=== PATIENT | male | born 1940 | race Caucasian/White ===

== ENCOUNTER 2016-08-23 19:40 | Emergency (ER) | payer OTHER ==
--- NOTE | 2016-08-23 21:08 | DIAGNOSTIC IMAGING REPORT ---
PROCEDURE: CT ABD/PELVIS WITH CONTRAST CLINICAL INDICATION: Mid abdominal pain x 3 days TECHNIQUE: 140 ml of Isovue 300 were injected intravenously and axial images were obtained of the entire abdomen and pelvis with sagittal and coronal reformations. COMPARISON: CT abdomen/pelvis 05/18/2013 FINDINGS: ABDOMEN: Mild left basilar scarring. Heart size is normal. Liver, gallbladder, pancreas, spleen, adrenal glands and kidneys are normal. Mild atherosclerosis of the aorta. Mild descending colon diverticulosis. PELVIS: Normal appendix. Midsigmoid anastomosis. Mildly enlarged prostate. Small bladder diverticula posteriorly and laterally are unchanged. No free fluid or inflammatory changes. Moderately severe degenerative changes of the spine. IMPRESSION: 1. Mild descending colon diverticulosis without inflammatory changes 2. Sigmoid surgical changes 3. Mildly enlarged prostate 4. Stable bladder diverticula 5. Results discussed with Dr. Santo All CT scans at this facility use dose modulation, iterative reconstruction, and/or weight-based dosing when appropriate to reduce radiation dose to as low as reasonably achievable.
--- NOTE | 2016-08-23 23:13 | ED CLINICAL REPORT ---
Clinical Report - Physicians/Mid Levels [facility] [address] [place] [address] 08/23/2016 19:41 Patient: BUCK MERRILL [place] Llct#: [id number] Time Seen: 19:58 Aug 23 2016. Arrived- By private vehicle. Historian- patient. HISTORY OF PRESENT ILLNESS Chief Complaint: ABDOMINAL PAIN. It is described as located in the lower abdomen. This started today and is still present. It was abrupt in onset and has been constant and waxing/waning. At its maximum, severity described as severe. When seen in the E.D., severity described as mild. The patient has had nausea. No vomiting. Similar symptoms previously: Many times. Diagnosis: (unclear). REVIEW OF SYSTEMS No chills, fever, sweats, calf pain or chest pain. No cough, difficulty breathing, pedal edema, palpitations or black stools. No bloody stools, constipation, diarrhea or urinary problems. n his report that he's had injury to both of his great toes. Apparently he was chopping wood in his stocking feet and a piece of wood struck them several days ago. Now he is having increased redness warmth and swelling oversight's that were abraded. All systems otherwise negative, except as recorded above. SOCIAL HISTORY Never smoker. No alcohol use or drug use. FAMILY HISTORY Denies family medical history. ADDITIONAL NOTES The nursing notes have been reviewed. PHYSICAL EXAM Vital Signs: 08/23/2016 19:48 BP: 154/73. HR: 100. RR: 16. O2 saturation: 96%. Temp: 97.6 F. Boyd-Hrat pain scale: 6/10. Have been reviewed. Appearance: Alert. Eyes: Pupils equal, round and reactive to light. ENT: Pharynx normal. Neck: Normal inspection. Neck supple. CVS: Normal heart rate and rhythm. Heart sounds normal. Respiratory: No respiratory distress. Breath sounds normal. Abdomen: Soft and nontender. Bowel sounds normal. No organomegaly. No mass. Back: Normal inspection. No CVA tenderness. Skin: Skin warm and dry. Normal skin color. Normal skin turgor. Extremities: Extremities exhibit normal ROM. No calf tenderness. Right foot: moderate erythema, mild tenderness and swelling and small and deep abrasion located in the first toe(s). Left foot: moderate erythema, mild tenderness and swelling and deep abrasion of the first toe. No lower extremity edema. Neuro: No motor deficit. No sensory deficit. LABS, X-RAYS, AND EKG Abdominal CT: Descending diverticula, no inflammatory findings. Laboratory Tests: UA-Culture if indicated: (COURT: 08/23/2016 20:05) ( [facility] [place] 08/23/[place] 20:23) Final results Test Result Flag Units (Reference) URINE COLOR YELLOW URINE APPEARANCE CLEAR URINE GLUCOSE NEGATIVE (NEGATIVE) URINE BILIRUBIN NEGATIVE (NEGATIVE) URINE KETONE NEGATIVE (NEGATIVE) URINE SPECIFIC GRAVITY 1.015 (1.010-1.030) URINE PH 7.0 (5.0-8.0) URINE PROTEIN TRACE (NEGATIVE) URINE UROBILINOGEN 0.2 EU/dL (0.2-1.0) URINE NITRITE NEGATIVE (NEGATIVE) URINE BLOOD 1+ (NEGATIVE) URINE LEUK ESTERASE NEGATIVE (NEGATIVE) URINE RBC 1-3 rbc/hpf (0-1) URINE WBC 0-1 wbc/hpf (0-1) URINE EPITHELIAL CELLS RARE EPI/hpf (0-5) URINE BACTERIA NONE SEEN (NONE SEEN) URINE COMMENT CULT NOT INDICATED 1+ MUCUSURINE CULTURES ARE SET-UP BASED ON THE FOLLOWING CRITERIA:POSITIVE NITRITEPOSITIVE LEUKOCYTE ESTERASEGREATER THAN 10 WHITE BLOOD CELLSMODERATE (2+) OR GREATER BACTERIA CBC w Diff: (COURT: 08/23/2016 20:00) ( [facility] [place] 20:16) Final results Test Result Flag Units (Reference) WHITE BLOOD COUNT 11.4 K/uL (4.5-11.5) RED BLOOD COUNT 5.14 M/uL (4.50-5.90) HEMOGLOBIN 15.9 gm/dL (13.5-17.5) HEMATOCRIT 48.7 % (41.0-53.0) MEAN CELL VOLUME 95 fL (80-100) MEAN CORPUSCULAR HGB 31 pg (26-34) MEAN CORPUSCULAR HGB CONC 33 g/dL (31-37) RED CELL DISTRIBUTION WIDTH 15.1 H % (11.6-14.8) PLATELET COUNT 266 K/uL (150-400) NEUTROPHIL % 81.0 H % (50-75) LYMPH % 12.7 L % (25-40) MONO % 5.3 % (3-14) EOSINOPHIL % 0.5 % (0-4) BASOPHIL % 0.5 % (0-2) CMP: (COURT: 08/23/2016 20:00) ( [facility] 08/23/2016 20:27) Final results Test Result Flag Units (Reference) GLUCOSE 115 H mg/dL (70-110) BUN 14 mg/dL (7-18) CREATININE 0.9 mg/dL (0.6-1.3) Estimated GFR >60 mL/min Estimated GFR- >60 mL/min Note: Persistent reduction over 3 months in eGFR<60 mL/min/1.73 m2 defines CKD. Patients with eGFR values>=60 mL/min/1.73 m2 may also have CKD if evidence ofpersistent proteinuria. Additional information may be foundat [email or web address].org. SODIUM 143 mmol/L (136-145) POTASSIUM 3.7 mmol/L (3.5-5.1) CHLORIDE 104 mmol/L (98-107) CARBON DIOXIDE 28 mmol/L (21-32) CALCIUM 9.4 mg/dL (8.5-10.1) TOTAL PROTEIN 8.7 H g/dL (6.4-8.2) ALBUMIN 4.3 g/dL (3.3-5.0) BILIRUBIN, TOTAL 0.8 mg/dL (0.0-1.0) ALKALINE PHOSPHATASE 106 U/L (46-116) AST (SGOT) 25 U/L (15-37) ALT (SGPT) 23 U/L (12-78) LIPASE 165 U/L (73-393) AMYLASE 68 U/L (25-115) . PROGRESS AND PROCEDURES Course of Care: Care was initiated by Dr. Santo. However, the history and examination findings as noted are those found by vt. - MW. Patient is stable. Patient/family counseled. Old medical records reviewed. Disposition: Discharged. Condition: stable. CLINICAL IMPRESSION Abdominal pain. Cellulitis of the right great toe and left great toe. INSTRUCTIONS No driving or operating machinery while taking medication. Drink plenty of fluids. Warnings: Further evaluation is necessary. GENERAL WARNINGS: Return or contact your physician immediately if your condition worsens or changes unexpectedly, if not improving as expected, or if other problems arise. Prescription Medications: Ultram 50 mg: take 1-2 orally. Dispense fifteen (15). No refills. Substitution is permissible. Keflex 500 mg: take 1 capsule orally every 6 hours for 10 days. No refill. Substitution is permissible. Follow-up: Return to the emergency department if not able to be seen at Dr. Felder's office tomorrow. Understanding of the discharge instructions verbalized by patient. Follow-up with: Barney Felder MD, General Surgeon, , [facility], [address] [place] [address] Follow up tomorrow even if well. Call for an appointment. (Electronically signed by Dominik Brooks MD 08/24/2016 1:43)
--- NOTE | 2016-08-23 23:13 | ED NURSING NOTES ---
Clinical Report - Nurses [facility] [address] [place] [address] 08/23/2016 19:41 Patient: BUCK MERRILL TRIAGE Triage time 19:48. Acuity: LEVEL 3. Chief Complaint: ABDOMINAL PAIN and NAUSEA. Alert. No acute distress. --19:54 Karla Bryan R.N. 19:48 08/23/16. BP: 154/73. HR: 100. RR: 16. O2 saturation: 96% on room air. Temp: 97.6 F. Boyd-Hart pain scale: 6/10. --19:54 Karla Bryan R.N. Weight: 99.7 kg. Height/Length: 65 inches Per Patient. BMI: 36.6. --19:49 Karla Bryan R.N. Medications Synthroid Oral 200 mcg, daily. Zocor Oral 40 mg, daily. Zolpidem Tartrate Oral 10 mg, at bedtime. --19:52 Karla Bryan R.N. CeleBREX Oral (Capsule 50 mg) 1 capsule, daily. --19:52 Karla Bryan R.N. PARoxetine HCl Oral. --19:53 Karla Bryan R.N. Viagra Oral (Tablet 100 mg) 1 tablet, PRN, last dose last night at 2200. --19:53 Karla Bryan R.N. Allergies NKDA. --19:52 Karla Bryan R.N. History Arrived by private vehicle. Historian: patient. Accompanied by family. Primary physician (Jaxon Branch). This started today. No diarrhea or constipation. 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 SOCIAL HX: Never smoker. No alcohol use or drug use. FUNCTIONAL ASSESSMENT: Functional assessment performed: uses cane. --19:54 Karla Bryan R.N. ( Patient also complaining of bilateral great toe pain - states he has dropped wood on his toes while splitting wood). --20:33 Basilio Ordonez R.N. PROBLEMS: Diverticulitis. PTSD. Abdominal Pain. Hypothyroidism. Hypertension. Hypercholesterolemia. --19:54 Karla Bryan R.N. ADDITIONAL SURGERIES: Colectomy. Knee Surgery. Tonsillectomy. --19:54 Karla Bryan R.N. Interventions ID band on patient. To treatment room. --19:54 Karla Bryan R.N. PHYSICAL ASSESSMENT Ambulatory to room. Patient gowned. GENERAL / NEURO / PSYCH: Alert. Oriented X 4. Appears in pain. HEENT: Mucous membranes are pink. RESPIRATORY: Respirations not labored. CVS: Capillary refill less than 2 seconds. SKIN: Skin is warm and dry. --19:55 Karla Bryan R.N. 20:30. SKIN: ( Reddened and swelling left great toe, dried blood right great toe). --20:32 Basilio Ordonez R.N. NURSING PROGRESS NOTES Head of bed elevated. Two patient identifiers checked. Call light placed in reach. Side rails up x 1. Bed placed in lowest position. Brakes of bed on. --19:55 Karla Bryan R.N. Patient ready for evaluation- chart flagged. --19:55 Karla Bryan R.N. 20:00 08/23/2016 Site #1 started via IV in the left antecubital space with an 20g angiocath, with aseptic technique and good blood return; one attempt. Blood drawn: rainbow set. Labeled in the presence of the patient and sent to the lab. Saline lock flushed with 10 mL saline. --20:02 Basilio Ordonez R.N. 20:11. Patient ID band checked for patient name and birthdate: patient confirmed. Clean catch urine collected with return of yellow-colored clear urine; sample sent to lab for urinalysis. Specimen labeled in the presence of the patient. --20:11 Basilio Ordonez R.N. 20:23 08/23/2016 Zofran (Ondansetron HCl) IVP 4 mg given over 2 minute(s) via site #1. Allergies verified and confirmed 5 rights. IV patency established. IV site checked: no pain, redness, or swelling. IV flushed thoroughly pre- and post-medication administration. --20:28 Basilio Ordonez R.N. 20:25 08/23/2016 Dilaudid (HYDROmorphone HCl PF) IVP 1 mg given over 2 minute(s) via site #1. Allergies verified, confirmed 5 rights and sedative warning given to the patient and patient's family. IV patency established. IV site checked: no pain, redness, or swelling. IV flushed thoroughly pre- and post-medication administration. --20:29 Basilio Ordonez R.N. 20:27 08/23/2016 Ativan (LORazepam) IVP 0.5 mg given over 1 minute(s) via site #1. Allergies verified, confirmed 5 rights and sedative warning given to the patient. IV patency established. IV site checked: no pain, redness, or swelling. IV flushed thoroughly pre- and post-medication administration. --20:29 Basilio Ordonez R.N. The patient is calm and resting quietly. SKIN: Skin is warm and dry. Skin color within normal limits. --20:30 Basilio Ordonez R.N. 20:29 08/23/16. BP: 148/68. HR: 88. RR: 17. O2 saturation: 100% on room air. --20:30 Basilio Ordonez R.N. 20:45. Patient transported to [place] by stretcher with tech. --20:45 Basilio Ordonez R.N. 20:59. Patient returned from [place] by stretcher with tech. --21:01 Basilio Ordonez R.N. The patient is calm and resting quietly. --21:50 Basilio Ordonez R.N. 21:47 08/23/16. BP: 118/84. HR: 88. RR: 17. O2 saturation: 94% on room air. Pain level now: 01/08. --21:50 Basilio Ordonez R.N. 23:14. The patient is calm and resting quietly. SKIN: Skin is warm and dry. Skin color within normal limits. --23:19 Basilio Ordnoez R.N. DISPOSITION / DISCHARGE 23:09 08/23/2016 Site #1 removed upon discharge. Catheter intact. Bandage applied. --23:18 Basilio Ordonez R.N. Departure time: 23:17. Condition at departure: stable. No learning barriers present. Discharge instructions provided and reviewed with the patient and spouse. Reviewed medication(s) side effects, precautions, dosing and course information. Prescription(s) given to the patient. Patient and spouse verbalized understanding. Written instructions provided in Setswana. The patient was discharged home and accompanied by spouse. He left the Emergency Department ambulatory and via private vehicle. Spouse driving. FALL RISK ASSESSMENT: Fall risk assessment completed. No fall risk identified. --23:18 Basilio Ordonez R.N. 22:59 08/23/16. BP: 139/85. HR: 88. RR: 16. O2 saturation: 97% on room air. Pain level now: 10/08. --23:18 Basilio Ordonez R.N. Locked/Released at 08/23/2016 23:19 by Basilio Ordonez R.N.
--- NOTE | 2016-08-23 23:13 | ED ORDER SUMMARY ---
..... Patient: BUCK MERRILL OrderSheet [facility] VisitID: [id number] [place] [address] 76y, M Registration Date/Time: 08/23/2016 ORDER SHEET Weight: 99.7 kg Allergies: NKDA GENERAL ORDERS: CBC w Diff Urgent (20:07 08/23/2016 JQuivey R.N. per protocol) (Ack 20:09 RKaruga) (20:13 JQuivey R.N.) CMP Urgent (20:08/23/2016 JQuivey R.N. per protocol) (Ack 20:09 RKaruga) (20:13 JQuivey R.N.) UA-Culture if indicated Urgent (20:08/23/2016 JQuivey R.N. per protocol) (Ack 20:09 RKaruga) (20:13 JQuivey R.N.) Amylase Urgent (20:08/23/2016 JQuivey R.N. per protocol) (Ack 20:09 RKaruga) (20:13 JQuivey R.N.) Lipase Urgent (20:08/23/2016 JQuivey R.N. per protocol) (Ack 20:09 RKaruga) (20:13 JQuivey R.N.) CT Abd/Pel w Cont (No) (pending) Urgent (20:20 08/23/2016 Pilar JONES) (Ack 20:42 RKpeggyuga) (21:19 [facility]) MEDICATION ORDERS: IV FLUIDS: IV Saline Lock (20:13 08/23/2016 JQuivey R.N. per protocol) (20:13 JQuivey R.N.) Dilaudid IV 1 mg (NOW) (20:18 08/23/2016 Pilar JONES) (Ack 20:19 JQuivey R.N.) (20:29 JQuivey R.N.) Ativan IV 0.5 mg (NOW) (20:18 08/23/2016 Pilar JONES) (Ack 20:19 JQuivey R.N.) (20:29 JQuivey R.N.) Zofran IV 4 mg (NOW) (20:19 08/23/2016 Pilar JONES) (Ack 20:19 Michelle Casillas) (20:28 Michelle Casillas) ORDER SHEET NOTES: [Electronically signed by Basilio Ordonez R.N. (23:19 08/23/2016)] [Electronically signed by Dominik Brooks MD (01:43 08/24/2016)] [Electronically locked/signed by Basilio Ordonez R.N. (23:19 08/23/2016)]
--- NOTE | 2016-08-23 23:13 | ED NURSING NOTES ---
Clinical Report - Nurses [facility] [address] [place] [address] 08/23/2016 19:41 Patient: BUCK MERRILL TRIAGE Triage time 19:48. Acuity: LEVEL 3. Chief Complaint: ABDOMINAL PAIN and NAUSEA. Alert. No acute distress. --19:54 Karla Bryan R.N. 19:48 08/23/16. BP: 154/73. HR: 100. RR: 16. O2 saturation: 96% on room air. Temp: 97.6 F. Boyd-Hart pain scale: 6/10. --19:54 Karla Bryan R.N. Weight: 99.7 kg. Height/Length: 65 inches Per Patient. BMI: 36.6. --19:49 Karla Bryan R.N. Medications Synthroid Oral 200 mcg, daily. Zocor Oral 40 mg, daily. Zolpidem Tartrate Oral 10 mg, at bedtime. --19:52 Karla Bryan R.N. CeleBREX Oral (Capsule 50 mg) 1 capsule, daily. --19:52 Karla Bryan R.N. PARoxetine HCl Oral. --19:53 Karla Bryan R.N. Viagra Oral (Tablet 100 mg) 1 tablet, PRN, last dose last night at 2200. --19:53 Karla Bryan R.N. Allergies NKDA. --19:52 Karla Bryan R.N. History Arrived by private vehicle. Historian: patient. Accompanied by family. Primary physician (Jaxon Branch). This started today. No diarrhea or constipation. 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 SOCIAL HX: Never smoker. No alcohol use or drug use. FUNCTIONAL ASSESSMENT: Functional assessment performed: uses cane. --19:54 Karla Bryan R.N. ( Patient also complaining of bilateral great toe pain - states he has dropped wood on his toes while splitting wood). --20:33 Basilio Ordonez R.N. PROBLEMS: Diverticulitis. PTSD. Abdominal Pain. Hypothyroidism. Hypertension. Hypercholesterolemia. --19:54 Karla Bryan R.N. ADDITIONAL SURGERIES: Colectomy. Knee Surgery. Tonsillectomy. --19:54 Karla Bryan R.N. Interventions ID band on patient. To treatment room. --19:54 Karla Bryan R.N. PHYSICAL ASSESSMENT Ambulatory to room. Patient gowned. GENERAL / NEURO / PSYCH: Alert. Oriented X 4. Appears in pain. HEENT: Mucous membranes are pink. RESPIRATORY: Respirations not labored. CVS: Capillary refill less than 2 seconds. SKIN: Skin is warm and dry. --19:55 Karla Bryan R.N. 20:30. SKIN: ( Reddened and swelling left great toe, dried blood right great toe). --20:32 Basilio Ordonez R.N. NURSING PROGRESS NOTES Head of bed elevated. Two patient identifiers checked. Call light placed in reach. Side rails up x 1. Bed placed in lowest position. Brakes of bed on. --19:55 Karla Bryan R.N. Patient ready for evaluation- chart flagged. --19:55 Karla Bryan R.N. 20:00 08/23/2016 Site #1 started via IV in the left antecubital space with an 20g angiocath, with aseptic technique and good blood return; one attempt. Blood drawn: rainbow set. Labeled in the presence of the patient and sent to the lab. Saline lock flushed with 10 mL saline. --20:02 Basilio Ordonez R.N. 20:11. Patient ID band checked for patient name and birthdate: patient confirmed. Clean catch urine collected with return of yellow-colored clear urine; sample sent to lab for urinalysis. Specimen labeled in the presence of the patient. --20:11 Basilio Ordonez R.N. 20:23 08/23/2016 Zofran (Ondansetron HCl) IVP 4 mg given over 2 minute(s) via site #1. Allergies verified and confirmed 5 rights. IV patency established. IV site checked: no pain, redness, or swelling. IV flushed thoroughly pre- and post-medication administration. --20:28 Basilio Ordonez R.N. 20:25 08/23/2016 Dilaudid (HYDROmorphone HCl PF) IVP 1 mg given over 2 minute(s) via site #1. Allergies verified, confirmed 5 rights and sedative warning given to the patient and patient's family. IV patency established. IV site checked: no pain, redness, or swelling. IV flushed thoroughly pre- and post-medication administration. --20:29 Basilio Ordonez R.N. 20:27 08/23/2016 Ativan (LORazepam) IVP 0.5 mg given over 1 minute(s) via site #1. Allergies verified, confirmed 5 rights and sedative warning given to the patient. IV patency established. IV site checked: no pain, redness, or swelling. IV flushed thoroughly pre- and post-medication administration. --20:29 Basilio Ordonez R.N. The patient is calm and resting quietly. SKIN: Skin is warm and dry. Skin color within normal limits. --20:30 Basilio Ordonez R.N. 20:29 08/23/16. BP: 148/68. HR: 88. RR: 17. O2 saturation: 100% on room air. --20:30 Basilio Ordonez R.N. 20:45. Patient transported to [place] by stretcher with tech. --20:45 Basilio Ordonez R.N. 20:59. Patient returned from [place] by stretcher with tech. --21:01 Basilio Ordonez R.N. The patient is calm and resting quietly. --21:50 Basilio Ordonez R.N. 21:47 08/23/16. BP: 118/84. HR: 88. RR: 17. O2 saturation: 94% on room air. Pain level now: 01/08. --21:50 Basilio Ordonez R.N. 23:14. The patient is calm and resting quietly. SKIN: Skin is warm and dry. Skin color within normal limits. --23:19 Basilio Ordonez R.N. DISPOSITION / DISCHARGE 23:09 08/23/2016 Site #1 removed upon discharge. Catheter intact. Bandage applied. --23:18 Basilio Ordonez R.N. Departure time: 23:17. Condition at departure: stable. No learning barriers present. Discharge instructions provided and reviewed with the patient and spouse. Reviewed medication(s) side effects, precautions, dosing and course information. Prescription(s) given to the patient. Patient and spouse verbalized understanding. Written instructions provided in Maltese. The patient was discharged home and accompanied by spouse. He left the Emergency Department ambulatory and via private vehicle. Spouse driving. FALL RISK ASSESSMENT: Fall risk assessment completed. No fall risk identified. --23:18 Basilio Ordonez R.N. 22:59 08/23/16. BP: 139/85. HR: 88. RR: 16. O2 saturation: 97% on room air. Pain level now: 10/08. --23:18 Basilio Ordonez R.N. Locked/Released at 08/23/2016 23:19 by Basilio Ordonez R.N.
--- NOTE | 2016-08-23 23:13 | ED ORDER SUMMARY ---
..... Patient: BUCK MERRILL OrderSheet [facility] VisitID: [id number] [place] [address] 76y, M Registration Date/Time: 08/23/2016 ORDER SHEET Weight: 99.7 kg Allergies: NKDA GENERAL ORDERS: CBC w Diff Urgent (20:07 08/23/2016 JQuivey R.N. per protocol) (Ack 20:09 RKaruga) (20:13 JQuivey R.N.) CMP Urgent (20:08/23/2016 JQuivey R.N. per protocol) (Ack 20:09 RKaruga) (20:13 JQuivey R.N.) UA-Culture if indicated Urgent (20:08/23/2016 JQuivey R.N. per protocol) (Ack 20:09 RKaruga) (20:13 JQuivey R.N.) Amylase Urgent (20:08/23/2016 JQuivey R.N. per protocol) (Ack 20:09 RKaruga) (20:13 JQuivey R.N.) Lipase Urgent (20:08/23/2016 JQuivey R.N. per protocol) (Ack 20:09 RKaruga) (20:13 JQuivey R.N.) CT Abd/Pel w Cont (No) (pending) Urgent (20:20 08/23/2016 Pilar JONES) (Ack 20:42 RKpeggyuga) (21:19 [facility]) MEDICATION ORDERS: IV FLUIDS: IV Saline Lock (20:13 08/23/2016 JQuivey R.N. per protocol) (20:13 JQuivey R.N.) Dilaudid IV 1 mg (NOW) (20:18 08/23/2016 Pilar JONES) (Ack 20:19 JQuivey R.N.) (20:29 JQuivey R.N.) Ativan IV 0.5 mg (NOW) (20:18 08/23/2016 Pilar JONES) (Ack 20:19 JQuivey R.N.) (20:29 JQuivey R.N.) Zofran IV 4 mg (NOW) (20:19 08/23/2016 Pilar JONES) (Ack 20:19 Michelle Casillas) (20:28 Michelle Casillas) ORDER SHEET NOTES: [Electronically signed by Basilio Ordonez R.N. (23:19 08/23/2016)] [Electronically signed by Dominik Brooks MD (01:43 08/24/2016)] [Electronically locked/signed by Basilio Ordonez R.N. (23:19 08/23/2016)]
--- NOTE | 2016-08-23 23:13 | ED CLINICAL REPORT ---
Clinical Report - Physicians/Mid Levels [facility] [address] [place] [address] 08/23/2016 19:41 [id number] Time Seen: 19:58 Aug 23 2016. Arrived- By private vehicle. Historian- patient. HISTORY OF PRESENT ILLNESS Chief Complaint: ABDOMINAL PAIN. It is described as located in the lower abdomen. This started today and is still present. It was abrupt in onset and has been constant and waxing/waning. At its maximum, severity described as severe. When seen in the E.D., severity described as mild. The patient has had nausea. No vomiting. Similar symptoms previously: Many times. Diagnosis: (unclear). REVIEW OF SYSTEMS No chills, fever, sweats, calf pain or chest pain. No cough, difficulty breathing, pedal edema, palpitations or black stools. No bloody stools, constipation, diarrhea or urinary problems. n his report that he's had injury to both of his great toes. Apparently he was chopping wood in his stocking feet and a piece of wood struck them several days ago. Now he is having increased redness warmth and swelling oversight's that were abraded. All systems otherwise negative, except as recorded above. SOCIAL HISTORY Never smoker. No alcohol use or drug use. FAMILY HISTORY Denies family medical history. ADDITIONAL NOTES The nursing notes have been reviewed. PHYSICAL EXAM Vital Signs: 08/23/2016 19:48 BP: 154/73. HR: 100. RR: 16. O2 saturation: 96%. Temp: 97.6 F. Boyd-Hart pain scale: 6/10. Have been reviewed. Appearance: Alert. Eyes: Pupils equal, round and reactive to light. ENT: Pharynx normal. Neck: Normal inspection. Neck supple. CVS: Normal heart rate and rhythm. Heart sounds normal. Respiratory: No respiratory distress. Breath sounds normal. Abdomen: Soft and nontender. Bowel sounds normal. No organomegaly. No mass. Back: Normal inspection. No CVA tenderness. Skin: Skin warm and dry. Normal skin color. Normal skin turgor. Extremities: Extremities exhibit normal ROM. No calf tenderness. Right foot: moderate erythema, mild tenderness and swelling and small and deep abrasion located in the first toe(s). Left foot: moderate erythema, mild tenderness and swelling and deep abrasion of the first toe. No lower extremity edema. Neuro: No motor deficit. No sensory deficit. LABS, X-RAYS, AND EKG Abdominal CT: Descending diverticula, no inflammatory findings. Laboratory Tests: UA-Culture if indicated: (COURT: 08/23/2016 20:05) ( [facility] [place] 20:23[place] Final results Test Result Flag Units (Reference) URINE COLOR YELLOW URINE APPEARANCE CLEAR URINE GLUCOSE NEGATIVE (NEGATIVE) URINE BILIRUBIN NEGATIVE (NEGATIVE) URINE KETONE NEGATIVE (NEGATIVE) URINE SPECIFIC GRAVITY 1.015 (1.010-1.030) URINE PH 7.0 (5.0-8.0) URINE PROTEIN TRACE (NEGATIVE) URINE UROBILINOGEN 0.2 EU/dL (0.2-1.0) URINE NITRITE NEGATIVE (NEGATIVE) URINE BLOOD 1+ (NEGATIVE) URINE LEUK ESTERASE NEGATIVE (NEGATIVE) URINE RBC 1-3 rbc/hpf (0-1) URINE WBC 0-1 wbc/hpf (0-1) URINE EPITHELIAL CELLS RARE EPI/hpf (0-5) URINE BACTERIA NONE SEEN (NONE SEEN) URINE COMMENT CULT NOT INDICATED 1+ MUCUSURINE CULTURES ARE SET-UP BASED ON THE FOLLOWING CRITERIA:POSITIVE NITRITEPOSITIVE LEUKOCYTE ESTERASEGREATER THAN 10 WHITE BLOOD CELLSMODERATE (2+) OR GREATER BACTERIA CBC w Diff: (COURT: 08/23/2016 20:00) ( [facility] [place] 20:16) Final results Test Result Flag Units (Reference) WHITE BLOOD COUNT 11.4 K/uL (4.5-11.5) RED BLOOD COUNT 5.14 M/uL (4.50-5.90) HEMOGLOBIN 15.9 gm/dL (13.5-17.5) HEMATOCRIT 48.7 % (41.0-53.0) MEAN CELL VOLUME 95 fL (80-100) MEAN CORPUSCULAR HGB 31 pg (26-34) MEAN CORPUSCULAR HGB CONC 33 g/dL (31-37) RED CELL DISTRIBUTION WIDTH 15.1 H % (11.6-14.8) PLATELET COUNT 266 K/uL (150-400) NEUTROPHIL % 81.0 H % (50-75) LYMPH % 12.7 L % (25-40) MONO % 5.3 % (3-14) EOSINOPHIL % 0.5 % (0-4) BASOPHIL % 0.5 % (0-2) CMP: (COURT: 08/23/2016 20:00) ( [facility] 08/23/2016 20:27) Final results Test Result Flag Units (Reference) GLUCOSE 115 H mg/dL (70-110) BUN 14 mg/dL (7-18) CREATININE 0.9 mg/dL (0.6-1.3) Estimated GFR >60 mL/min Estimated GFR- >60 mL/min Note: Persistent reduction over 3 months in eGFR<60 mL/min/1.73 m2 defines CKD. Patients with eGFR values>=60 mL/min/1.73 m2 may also have CKD if evidence ofpersistent proteinuria. Additional information may be foundat www.[email or web address].org. SODIUM 143 mmol/L (136-145) POTASSIUM 3.7 mmol/L (3.5-5.1) CHLORIDE 104 mmol/L (98-107) CARBON DIOXIDE 28 mmol/L (21-32) CALCIUM 9.4 mg/dL (8.5-10.1) TOTAL PROTEIN 8.7 H g/dL (6.4-8.2) ALBUMIN 4.3 g/dL (3.3-5.0) BILIRUBIN, TOTAL 0.8 mg/dL (0.0-1.0) ALKALINE PHOSPHATASE 106 U/L (46-116) AST (SGOT) 25 U/L (15-37) ALT (SGPT) 23 U/L (12-78) LIPASE 165 U/L (73-393) AMYLASE 68 U/L (25-115) . PROGRESS AND PROCEDURES Course of Care: Care was initiated by Dr. Santo. However, the history and examination findings as noted are those found by de. - MW. Patient is stable. Patient/family counseled. Old medical records reviewed. Disposition: Discharged. Condition: stable. CLINICAL IMPRESSION Abdominal pain. Cellulitis of the right great toe and left great toe. INSTRUCTIONS No driving or operating machinery while taking medication. Drink plenty of fluids. Warnings: Further evaluation is necessary. GENERAL WARNINGS: Return or contact your physician immediately if your condition worsens or changes unexpectedly, if not improving as expected, or if other problems arise. Prescription Medications: Ultram 50 mg: take 1-2 orally. Dispense fifteen (15). No refills. Substitution is permissible. Keflex 500 mg: take 1 capsule orally every 6 hours for 10 days. No refill. Substitution is permissible. Follow-up: Return to the emergency department if not able to be seen at Dr. Felder's office tomorrow. Understanding of the discharge instructions verbalized by patient. Follow-up with: Barney Felder MD, General Surgeon, , [facility], [address] [place] [address] Follow up tomorrow even if well. Call for an appointment. (Electronically signed by Dominik Brooks MD 08/24/2016 1:43)
--- NOTE | 2016-08-24 01:43 | ED MED RECONCILIATION SUMMARY ---
Patient: BUCK MERRILL Medication Reconciliation Report [facility] VisitID: [id number] [address] [place] [address] 76y, M Registration Date/Time: 08/23/2016 Weight: 99.7 kg Height/Length: 65 in. BMI: 36.6 ALLERGIES: NKDA The patient's Home Medications are listed below: THE FOLLOWING MEDICATIONS NEED TO BE RECONCILED: CeleBREX Oral (50 mg) 1 capsule, daily PARoxetine HCl Oral Synthroid Oral 200 mcg, daily Viagra Oral (100 mg) 1 tablet, PRN, last dose: last night at 2200 Zocor Oral 40 mg, daily Zolpidem Tartrate Oral 10 mg, at bedtime The source(s) of the original Home Medication information: Not obtained. The following Medications were given to the patient in the Emergency Department: Zofran [IVP] IVP 4 mg, administered: 08/23/2016 8:23:00 PM Dilaudid [IVP] IVP 1 mg, administered: 08/23/2016 8:25:00 PM Ativan [IVP] IVP 0.5 mg, administered: 08/23/2016 8:27:00 PM The following Medications were prescribed to the patient: Ultram 50 mg: take 1-2 orally. Dispense fifteen (15). No refills. Substitution is permissible. -- Dominik Brooks MD Keflex 500 mg: take 1 capsule orally every 6 hours for 10 days. No refill. Substitution is permissible. -- Dominik Brooks MD
--- NOTE | 2016-08-24 01:43 | ED MAR SUMMARY ---
..... Medication Administration Record [facility] [address] [place] [address] Patient: BUCK MERRILL Visit ID: [id number] 76y, M Weight: 99.7 kg Height/Length: 65 in BMI: 36.6 ALLERGIES: NKDA Given 20:08/23/2016 Basilio Ordonez RHoangN. Medication Administered: ZOFRAN [IVP] (ONDANSETRON HCL), Dose: 4 mg IVP over 2 minute(s), Site: #1 left AC. Medication Ordered: Zofran IV 4 mg (NOW). Given 20:08/23/2016 Basilio Ordonez R.N. Medication Administered: DILAUDID [IVP] (HYDROMORPHONE HCL PF), Dose: 1 mg IVP over 2 minute(s), Site: #1 left AC. Medication Ordered: Dilaudid IV 1 mg (NOW). Given 2008/23/2016 Basilio Ordonez RHoangN. Medication Administered: ATIVAN [IVP] (LORAZEPAM), Dose: 0.5 mg IVP over 1 minute(s), Site: #1 left AC. Medication Ordered: Ativan IV 0.5 mg (NOW).
--- NOTE | 2016-08-24 01:43 | ED MAR SUMMARY ---
..... Medication Administration Record [facility] [address] [place] [address] Patient: BUCK MERRILL Visit ID: [id number] 76y, M Weight: 99.7 kg Height/Length: 65 in BMI: 36.6 ALLERGIES: NKDA Given 20:08/23/2016 Basilio Ordonez RHoangN. Medication Administered: ZOFRAN [IVP] (ONDANSETRON HCL), Dose: 4 mg IVP over 2 minute(s), Site: #1 left AC. Medication Ordered: Zofran IV 4 mg (NOW). Given 20:08/23/2016 Basilio Ordonez R.N. Medication Administered: DILAUDID [IVP] (HYDROMORPHONE HCL PF), Dose: 1 mg IVP over 2 minute(s), Site: #1 left AC. Medication Ordered: Dilaudid IV 1 mg (NOW). Given 2008/23/2016 Basilio Ordonez RHoangN. Medication Administered: ATIVAN [IVP] (LORAZEPAM), Dose: 0.5 mg IVP over 1 minute(s), Site: #1 left AC. Medication Ordered: Ativan IV 0.5 mg (NOW).
--- NOTE | 2016-08-24 01:43 | ED MED RECONCILIATION SUMMARY ---
Patient: BUCK MERRILL Medication Reconciliation Report [facility] VisitID: [id number] [address] [place] [address] 76y, M Registration Date/Time: 08/23/2016 Weight: 99.7 kg Height/Length: 65 in. BMI: 36.6 ALLERGIES: NKDA The patient's Home Medications are listed below: THE FOLLOWING MEDICATIONS NEED TO BE RECONCILED: CeleBREX Oral (50 mg) 1 capsule, daily PARoxetine HCl Oral Synthroid Oral 200 mcg, daily Viagra Oral (100 mg) 1 tablet, PRN, last dose: last night at 2200 Zocor Oral 40 mg, daily Zolpidem Tartrate Oral 10 mg, at bedtime The source(s) of the original Home Medication information: Not obtained. The following Medications were given to the patient in the Emergency Department: Zofran [IVP] IVP 4 mg, administered: 08/23/2016 8:23:00 PM Dilaudid [IVP] IVP 1 mg, administered: 08/23/2016 8:25:00 PM Ativan [IVP] IVP 0.5 mg, administered: 08/23/2016 8:27:00 PM The following Medications were prescribed to the patient: Ultram 50 mg: take 1-2 orally. Dispense fifteen (15). No refills. Substitution is permissible. -- Dominik Brooks MD Keflex 500 mg: take 1 capsule orally every 6 hours for 10 days. No refill. Substitution is permissible. -- Dominik Brooks MD
--- NOTE | 2016-08-24 01:43 | ED DISCHARGE INSTRUCTIONS ---
Patient: BUCK MERRILL General Instructions [facility] VisitID: [id number] [address] [place] [id number] 76y, M Registration Date/Time: 08/23/2016 Abdominal pain. Cellulitis of the right great toe and left great toe. INSTRUCTIONS No driving or operating machinery while taking medication. Drink plenty of fluids. Warnings: Further evaluation is necessary. GENERAL WARNINGS: Return or contact your physician immediately if your condition worsens or changes unexpectedly, if not improving as expected, or if other problems arise. Prescription Medications: Ultram 50 mg: take 1-2 orally. Dispense fifteen (15). No refills. Substitution is permissible. Keflex 500 mg: take 1 capsule orally every 6 hours for 10 days. No refill. Substitution is permissible. Follow-up: Return to the emergency department if not able to be seen at Dr. Felder's office tomorrow. Understanding of the discharge instructions verbalized by patient. Follow-up with: Barney Felder MD, General Surgeon, , [facility], [address] [place] [address] Follow up tomorrow even if well. Call for an appointment. ADDITIONAL INFORMATION Abdominal Pain,Uncertain Cause [Male] Based on your visit today, the exact cause of your abdominalpain is not clear. Your exam and tests do not indicate a dangerous cause at this time. However, the signs of a serious problem may take more time to appear. Although your evaluation was reassuring today, sometimes early in the course of many conditions, exam and lab tests can appear normal. Therefore, it is important for you to watch for any new symptoms or worsening of your condition. Causes It may not be obvious what caused your symptoms. Pay attention to things that do seem to make your symptoms worse or better and discuss this with your doctor when you follow up. Diagnosis The evaluation of abdominal pain in the emergency department may onlyrequire an exam by the doctor or it may include blood, urine or imaging studies, depending on many factors. Sometimes exams and tests can identify a cause but in many cases, a clear cause is not found. Further testing at follow up visits may help to suggest a clear diagnosis. Home Care Rest as much as possible until your next exam. Try to avoid any medications (unless otherwise directed by your doctor), foods, activities, or other factors that you may have contributed to your symptoms. Try to eat foods that you know that you have tolerated well in the past. Certain diets may be recommended for some conditions that cause abdominal pain. However, since the cause of your symptoms may not be clear, discuss your diet more with your primary care provider or specialist for further recommendations. Eating several small meals per day as opposed to 2 or 3 larger meals may help. Monitor closely for anything that may make your symptoms worse or better. Pay close attention to symptoms below that may indicate worsening of your condition. Follow Up and Precautions See your doctoras instructed or sooneror if your symptoms are not improving.In some cases, you may need more testing. When to Seek Medical Attention Contact your doctor or see medical attention ifany of the following occur: Pain is becoming worse You are unable to take your medications due to excessive vomiting Swelling of the abdomen Fever of 100.4F (38C) or higher, or as directed by your health care provider Blood in vomit or bowel movements (dark red or black color) Jaundice (yellow color of eyes and skin) New onset of weakness, dizziness or fainting New onset of chest, arm, back, neck or jaw pain Cellulitis You have an infection of the skin known as cellulitis. This usually starts with a scrape, cut, insect bite, blister or other opening in the skin which becomes infected. This is a serious condition. It must be watched closely to be sure the infection is not spreading. With antibiotic treatment, the size of the red area will gradually shrink in size until the skin returns to normal. This will take 7-10 days. The red area should never increase in size once the antibiotic medicine has been started. Occasionally, an infection will be resistant to one antibiotic and another one will have to be used. Home Care: 1) Limit the use of the affected part, since excess movement can cause the infection to spread. 2) If the infection is on your leg, walk as little as possible during the first few days of the treatment. Keep your leg elevated while sitting. This will reduce swelling. 3) Take all of the antibiotic medicine exactly as directed until it is gone. Be careful not to miss any doses, especially during the first seven days. Follow Up with your doctor or this facility as directed. Check the infected area daily for the warning signs listed below. Get Prompt Medical Attention if any of the following occur: -- Spreading area of redness -- Increasing swelling or pain -- Appearance of pus or drainage -- Fever over 100.4 F (38.0 C) oral, or over 101.4 F (38.6 C) rectal, after two days on antibiotics Tramadol Hydrochloride Oral tablet What is this medicine? TRAMADOL (TRA ma dole) is a pain reliever. It is used to treat moderate to severe pain in adults. How should I use this medicine? Take this medicine by mouth with a full glass of water. Follow the directions on the prescription label. If the medicine upsets your stomach, take it with food or milk. Do not take more medicine than you are told to take. Talk to your export traffic department manager regarding the use of this medicine in children. Special care may be needed. What side effects may I notice from receiving this medicine? Side effects that you should report to your doctor or health animal caretaker as soon as possible: allergic reactions like skin rash, itching or hives, swelling of the face, lips, or tongue breathing difficulties, wheezing confusion itching light headedness or fainting spells redness, blistering, peeling or loosening of the skin, including inside the mouth seizures Side effects that usually do not require medical attention (report to your doctor or health animal caretaker if they continue or are bothersome): constipation dizziness drowsiness headache nausea, vomiting What may interact with this medicine? Do not take this medicine with any of the following medications: MAOIs like Carbex, Eldepryl, Marplan, Nardil, and Parnate This medicine may also interact with the following medications: alcohol or medicines that contain alcohol antihistamines benzodiazepines bupropion carbamazepine or oxcarbazepine clozapine cyclobenzaprine digoxin furazolidone linezolid medicines for depression, anxiety, or psychotic disturbances medicines for migraine headache like almotriptan, eletriptan, frovatriptan, naratriptan, rizatriptan, sumatriptan, zolmitriptan medicines for pain like pentazocine, buprenorphine, butorphanol, meperidine, nalbuphine, and propoxyphene medicines for sleep muscle relaxants naltrexone phenobarbital phenothiazines like perphenazine, thioridazine, chlorpromazine, mesoridazine, fluphenazine, prochlorperazine, promazine, and trifluoperazine procarbazine warfarin What if I miss a dose? If you miss a dose, take it as soon as you can. If it is almost time for your next dose, take only that dose. Do not take double or extra doses. Where should I keep my medicine? Keep out of the reach of children. Store at room temperature between 15 and 30 degrees C (59 and 86 degrees F). Keep container tightly closed. Throw away any unused medicine after the expiration date. What should I tell my health care provider before I take this medicine? They need to know if you have any of these conditions: brain tumor depression drug abuse or addiction head injury if you frequently drink alcohol containing drinks kidney disease or trouble passing urine liver disease lung disease, asthma, or breathing problems seizures or epilepsy suicidal thoughts, plans, or attempt; a previous suicide attempt by you or a family member an unusual or allergic reaction to tramadol, codeine, other medicines, foods, dyes, or preservatives or trying to get breast-feeding What should I watch for while using this medicine? Tell your doctor or health animal caretaker if your pain does not go away, if it gets worse, or if you have new or a different type of pain. You may develop tolerance to the medicine. Tolerance means that you will need a higher dose of the medicine for pain relief. Tolerance is normal and is expected if you take this medicine for a long time. Do not suddenly stop taking your medicine because you may develop a severe reaction. Your body becomes used to the medicine. This does NOT mean you are addicted. Addiction is a behavior related to getting and using a drug for a non-medical reason. If you have pain, you have a medical reason to take pain medicine. Your doctor will tell you how much medicine to take. If your doctor wants you to stop the medicine, the dose will be slowly lowered over time to avoid any side effects. You may get drowsy or dizzy. Do not drive, use machinery, or do anything that needs mental alertness until you know how this medicine affects you. Do not stand or sit up quickly, especially if you are an older patient. This reduces the risk of dizzy or fainting spells. Alcohol can increase or decrease the effects of this medicine. Avoid alcoholic drinks. You may have constipation. Try to have a bowel movement at least every 2 to 3 days. If you do not have a bowel movement for 3 days, call your doctor or health animal caretaker. Your mouth may get dry. Chewing sugarless gum or sucking hard candy, and drinking plenty of water may help. Contact your doctor if the problem does not go away or is severe. Cephalexin Monohydrate Oral tablet What is this medicine? CEPHALEXIN (sef a CIRA in) is a cephalosporin antibiotic. It is used to treat certain kinds of bacterial infections It will not work for colds, flu, or other viral infections. How should I use this medicine? Take this medicine by mouth with a full glass of water. Follow the directions on the prescription label. This medicine can be taken with or without food. Take your medicine at regular intervals. Do not take your medicine more often than directed. Take all of your medicine as directed even if you think you are better. Do not skip doses or stop your medicine early. Talk to your export traffic department manager regarding the use of this medicine in children. While this drug may be prescribed for selected conditions, precautions do apply. What side effects may I notice from receiving this medicine? Side effects that you should report to your doctor or health animal caretaker as soon as possible: allergic reactions like skin rash, itching or hives, swelling of the face, lips, or tongue breathing problems pain or trouble passing urine redness, blistering, peeling or loosening of the skin, including inside the mouth severe or watery diarrhea unusually weak or tired yellowing of the eyes, skin Side effects that usually do not require medical attention (report to your doctor or health animal caretaker if they continue or are bothersome): gas or heartburn genital or anal irritation headache joint or muscle pain nausea, vomiting What may interact with this medicine? probenecid some other antibiotics What if I miss a dose? If you miss a dose, take it as soon as you can. If it is almost time for your next dose, take only that dose. Do not take double or extra doses. There should be at least 4 to 6 hours between doses. Where should I keep my medicine? Keep out of the reach of children. Store at room temperature between 59 and 86 degrees F (15 and 30 degrees C). Throw away any unused medicine after the expiration date. What should I tell my health care provider before I take this medicine? They need to know if you have any of these conditions: kidney disease stomach or intestine problems, especially colitis an unusual or allergic reaction to cephalexin, other cephalosporins, penicillins, other antibiotics, medicines, foods, dyes or preservatives or trying to get breast-feeding What should I watch for while using this medicine? Tell your doctor or health animal caretaker if your symptoms do not begin to improve in a few days. Do not treat diarrhea with over the counter products. Contact your doctor if you have diarrhea that lasts more than 2 days or if it is severe and watery. If you have diabetes, you may get a false-positive result for sugar in your urine. Check with your doctor or health animal caretaker. You have been given the following additional information: Abdominal Pain, Unknown Cause, (Male) Cellulitis Tramadol Hydrochloride Oral tablet Cephalexin Monohydrate Oral tablet No driving or operating machinery while taking medication. (Electronically signed by Dominik Brooks MD 08/24/2016 1:43)
--- NOTE | 2016-08-24 01:43 | ED DISCHARGE INSTRUCTIONS ---
Patient: BUCK MERRILL General Instructions [facility] VisitID: [id number] [address] [place] [place], [place] [id number] 76y, M Registration Date/Time: 08/23/2016 Abdominal pain. Cellulitis of the right great toe and left great toe. INSTRUCTIONS No driving or operating machinery while taking medication. Drink plenty of fluids. Warnings: Further evaluation is necessary. GENERAL WARNINGS: Return or contact your physician immediately if your condition worsens or changes unexpectedly, if not improving as expected, or if other problems arise. Prescription Medications: Ultram 50 mg: take 1-2 orally. Dispense fifteen (15). No refills. Substitution is permissible. Keflex 500 mg: take 1 capsule orally every 6 hours for 10 days. No refill. Substitution is permissible. Follow-up: Return to the emergency department if not able to be seen at Dr. Felder's office tomorrow. Understanding of the discharge instructions verbalized by patient. Follow-up with: Barney Felder MD, General Surgeon, , [facility], [address] [place] [address] Follow up tomorrow even if well. Call for an appointment. ADDITIONAL INFORMATION Abdominal Pain,Uncertain Cause [Male] Based on your visit today, the exact cause of your abdominalpain is not clear. Your exam and tests do not indicate a dangerous cause at this time. However, the signs of a serious problem may take more time to appear. Although your evaluation was reassuring today, sometimes early in the course of many conditions, exam and lab tests can appear normal. Therefore, it is important for you to watch for any new symptoms or worsening of your condition. Causes It may not be obvious what caused your symptoms. Pay attention to things that do seem to make your symptoms worse or better and discuss this with your doctor when you follow up. Diagnosis The evaluation of abdominal pain in the emergency department may onlyrequire an exam by the doctor or it may include blood, urine or imaging studies, depending on many factors. Sometimes exams and tests can identify a cause but in many cases, a clear cause is not found. Further testing at follow up visits may help to suggest a clear diagnosis. Home Care Rest as much as possible until your next exam. Try to avoid any medications (unless otherwise directed by your doctor), foods, activities, or other factors that you may have contributed to your symptoms. Try to eat foods that you know that you have tolerated well in the past. Certain diets may be recommended for some conditions that cause abdominal pain. However, since the cause of your symptoms may not be clear, discuss your diet more with your primary care provider or specialist for further recommendations. Eating several small meals per day as opposed to 2 or 3 larger meals may help. Monitor closely for anything that may make your symptoms worse or better. Pay close attention to symptoms below that may indicate worsening of your condition. Follow Up and Precautions See your doctoras instructed or sooneror if your symptoms are not improving.In some cases, you may need more testing. When to Seek Medical Attention Contact your doctor or see medical attention ifany of the following occur: Pain is becoming worse You are unable to take your medications due to excessive vomiting Swelling of the abdomen Fever of 100.4F (38C) or higher, or as directed by your health care provider Blood in vomit or bowel movements (dark red or black color) Jaundice (yellow color of eyes and skin) New onset of weakness, dizziness or fainting New onset of chest, arm, back, neck or jaw pain Cellulitis You have an infection of the skin known as cellulitis. This usually starts with a scrape, cut, insect bite, blister or other opening in the skin which becomes infected. This is a serious condition. It must be watched closely to be sure the infection is not spreading. With antibiotic treatment, the size of the red area will gradually shrink in size until the skin returns to normal. This will take 7-10 days. The red area should never increase in size once the antibiotic medicine has been started. Occasionally, an infection will be resistant to one antibiotic and another one will have to be used. Home Care: 1) Limit the use of the affected part, since excess movement can cause the infection to spread. 2) If the infection is on your leg, walk as little as possible during the first few days of the treatment. Keep your leg elevated while sitting. This will reduce swelling. 3) Take all of the antibiotic medicine exactly as directed until it is gone. Be careful not to miss any doses, especially during the first seven days. Follow Up with your doctor or this facility as directed. Check the infected area daily for the warning signs listed below. Get Prompt Medical Attention if any of the following occur: -- Spreading area of redness -- Increasing swelling or pain -- Appearance of pus or drainage -- Fever over 100.4 F (38.0 C) oral, or over 101.4 F (38.6 C) rectal, after two days on antibiotics Tramadol Hydrochloride Oral tablet What is this medicine? TRAMADOL (TRA ma dole) is a pain reliever. It is used to treat moderate to severe pain in adults. How should I use this medicine? Take this medicine by mouth with a full glass of water. Follow the directions on the prescription label. If the medicine upsets your stomach, take it with food or milk. Do not take more medicine than you are told to take. Talk to your special education educational assistant regarding the use of this medicine in children. Special care may be needed. What side effects may I notice from receiving this medicine? Side effects that you should report to your doctor or health home care manager rn as soon as possible: allergic reactions like skin rash, itching or hives, swelling of the face, lips, or tongue breathing difficulties, wheezing confusion itching light headedness or fainting spells redness, blistering, peeling or loosening of the skin, including inside the mouth seizures Side effects that usually do not require medical attention (report to your doctor or health home care manager rn if they continue or are bothersome): constipation dizziness drowsiness headache nausea, vomiting What may interact with this medicine? Do not take this medicine with any of the following medications: MAOIs like Carbex, Eldepryl, Marplan, Nardil, and Parnate This medicine may also interact with the following medications: alcohol or medicines that contain alcohol antihistamines benzodiazepines bupropion carbamazepine or oxcarbazepine clozapine cyclobenzaprine digoxin furazolidone linezolid medicines for depression, anxiety, or psychotic disturbances medicines for migraine headache like almotriptan, eletriptan, frovatriptan, naratriptan, rizatriptan, sumatriptan, zolmitriptan medicines for pain like pentazocine, buprenorphine, butorphanol, meperidine, nalbuphine, and propoxyphene medicines for sleep muscle relaxants naltrexone phenobarbital phenothiazines like perphenazine, thioridazine, chlorpromazine, mesoridazine, fluphenazine, prochlorperazine, promazine, and trifluoperazine procarbazine warfarin What if I miss a dose? If you miss a dose, take it as soon as you can. If it is almost time for your next dose, take only that dose. Do not take double or extra doses. Where should I keep my medicine? Keep out of the reach of children. Store at room temperature between 15 and 30 degrees C (59 and 86 degrees F). Keep container tightly closed. Throw away any unused medicine after the expiration date. What should I tell my health care provider before I take this medicine? They need to know if you have any of these conditions: brain tumor depression drug abuse or addiction head injury if you frequently drink alcohol containing drinks kidney disease or trouble passing urine liver disease lung disease, asthma, or breathing problems seizures or epilepsy suicidal thoughts, plans, or attempt; a previous suicide attempt by you or a family member an unusual or allergic reaction to tramadol, codeine, other medicines, foods, dyes, or preservatives or trying to get breast-feeding What should I watch for while using this medicine? Tell your doctor or health home care manager rn if your pain does not go away, if it gets worse, or if you have new or a different type of pain. You may develop tolerance to the medicine. Tolerance means that you will need a higher dose of the medicine for pain relief. Tolerance is normal and is expected if you take this medicine for a long time. Do not suddenly stop taking your medicine because you may develop a severe reaction. Your body becomes used to the medicine. This does NOT mean you are addicted. Addiction is a behavior related to getting and using a drug for a non-medical reason. If you have pain, you have a medical reason to take pain medicine. Your doctor will tell you how much medicine to take. If your doctor wants you to stop the medicine, the dose will be slowly lowered over time to avoid any side effects. You may get drowsy or dizzy. Do not drive, use machinery, or do anything that needs mental alertness until you know how this medicine affects you. Do not stand or sit up quickly, especially if you are an older patient. This reduces the risk of dizzy or fainting spells. Alcohol can increase or decrease the effects of this medicine. Avoid alcoholic drinks. You may have constipation. Try to have a bowel movement at least every 2 to 3 days. If you do not have a bowel movement for 3 days, call your doctor or health home care manager rn. Your mouth may get dry. Chewing sugarless gum or sucking hard candy, and drinking plenty of water may help. Contact your doctor if the problem does not go away or is severe. Cephalexin Monohydrate Oral tablet What is this medicine? CEPHALEXIN (sef a CIRA in) is a cephalosporin antibiotic. It is used to treat certain kinds of bacterial infections It will not work for colds, flu, or other viral infections. How should I use this medicine? Take this medicine by mouth with a full glass of water. Follow the directions on the prescription label. This medicine can be taken with or without food. Take your medicine at regular intervals. Do not take your medicine more often than directed. Take all of your medicine as directed even if you think you are better. Do not skip doses or stop your medicine early. Talk to your special education educational assistant regarding the use of this medicine in children. While this drug may be prescribed for selected conditions, precautions do apply. What side effects may I notice from receiving this medicine? Side effects that you should report to your doctor or health home care manager rn as soon as possible: allergic reactions like skin rash, itching or hives, swelling of the face, lips, or tongue breathing problems pain or trouble passing urine redness, blistering, peeling or loosening of the skin, including inside the mouth severe or watery diarrhea unusually weak or tired yellowing of the eyes, skin Side effects that usually do not require medical attention (report to your doctor or health home care manager rn if they continue or are bothersome): gas or heartburn genital or anal irritation headache joint or muscle pain nausea, vomiting What may interact with this medicine? probenecid some other antibiotics What if I miss a dose? If you miss a dose, take it as soon as you can. If it is almost time for your next dose, take only that dose. Do not take double or extra doses. There should be at least 4 to 6 hours between doses. Where should I keep my medicine? Keep out of the reach of children. Store at room temperature between 59 and 86 degrees F (15 and 30 degrees C). Throw away any unused medicine after the expiration date. What should I tell my health care provider before I take this medicine? They need to know if you have any of these conditions: kidney disease stomach or intestine problems, especially colitis an unusual or allergic reaction to cephalexin, other cephalosporins, penicillins, other antibiotics, medicines, foods, dyes or preservatives or trying to get breast-feeding What should I watch for while using this medicine? Tell your doctor or health home care manager rn if your symptoms do not begin to improve in a few days. Do not treat diarrhea with over the counter products. Contact your doctor if you have diarrhea that lasts more than 2 days or if it is severe and watery. If you have diabetes, you may get a false-positive result for sugar in your urine. Check with your doctor or health home care manager rn. You have been given the following additional information: Abdominal Pain, Unknown Cause, (Male) Cellulitis Tramadol Hydrochloride Oral tablet Cephalexin Monohydrate Oral tablet No driving or operating machinery while taking medication. (Electronically signed by Dominik Brooks MD 08/24/2016 1:43)
== END 2016-08-23 23:16 | disposition home or self-care (01) ==
LOC: ED SRH 19:40
DX: R10.30 Lower abdominal pain, unspecified (principal); L03.032 Cellulitis of left toe; L03.031 Cellulitis of right toe; R11.0 Nausea
CPT/HCPCS: 90004; 90100; 92235; 92530; 95059

== ENCOUNTER 2016-11-16 20:03 | Emergency (ER) | payer OTHER ==
--- NOTE | 2016-11-16 23:23 | DIAGNOSTIC IMAGING REPORT ---
PROCEDURE: ABDOMEN/PELVIS WITH CONTRAST CLINICAL INDICATION: ABDOMINAL PAIN TECHNIQUE: 125 ml of Isovue 300 were injected intravenously and axial images were obtained of the abdomen and pelvis with sagittal and coronal reformations. COMPARISON: 08/03/2016 FINDINGS: ABDOMEN: Clear lung bases. Normal sized heart. No hiatal hernia. The liver, gallbladder, adrenal glands, kidneys, pancreas and spleen are normal. The abdominal aorta is normal in its course and caliber. Mild calcific atherosclerosis. There are no suspicious calcifications, retroperitoneal adenopathy or masses. The stomach, upper bowel loops, and mesentery are normal. Intact anterior abdominal wall. No free fluid or inflammation. Occasional diverticulosis in the descending colon. No acute diverticulitis. PELVIS: The appendix and pelvic small bowel loops are normal. Mildly increased amount of stool in the colon and rectum. Mid sigmoid and anastomosis. The prostate gland is slightly enlarged. The urinary bladder demonstrates at least three small diverticula. No calculi. Pelvic vessels are patent. No adenopathy, free fluid, or pelvic mass. 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 Syndesmophytes throughout the visible spine, more extensive in the thoracic spine. IMPRESSION: 1. No acute process. 2. Partial sigmoid resection with anastomosis. 3. Descending diverticulosis without acute diverticulitis. 4. Findings called to the emergency room. All CT scans at this facility use dose modulation, iterative reconstruction, and/or weight-based dosing when appropriate to reduce radiation dose to as low as reasonably achievable.
--- NOTE | 2016-11-16 23:34 | ED CLINICAL REPORT ---
Clinical Report - Physicians/Mid Levels [facility] [address] [place] [address] 11/16/2016 20:05 Patient: BUCK MERRILL Time Seen: 20:25 Nov 16 2016. Arrived- By private vehicle. Historian- patient. HISTORY OF PRESENT ILLNESS Chief Complaint: ABDOMINAL PAIN and NAUSEA. It is described as "pain" and it is described as located in the left lower quadrant. At its maximum, severity described as moderate and 8 / 10. When seen in the E.D., severity described as moderate and 8 / 10. Modifying factors- worsened by swallowing. Relieved by rest. 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 The patient has had nausea and loss of appetite. No vomiting or diarrhea. No recent travel. Similar symptoms previously: As bad. Diagnosis: diverticulitis. Recent medical care: The patient was seen recently at another facility in a clinic (yesterday< Walk-in). Evaluation/treatment: x-rays, abdominal films, labs and urinalysis. Diagnosis: (possible kidney stone seen on 1 view abdomen.). REVIEW OF SYSTEMS No constipation, black stools, hematemesis, difficulty with urination or pain with urination. No urinary frequency, fever, sore throat, chest pain or difficulty breathing. No cough, joint pain, skin rash, chills or back pain. All systems otherwise negative, except as recorded above. PAST HISTORY No history of peptic ulcer. No history of gallstones or bowel obstruction. SOCIAL HISTORY Never smoker. No alcohol use or drug use. FAMILY HISTORY No significant family medical history. ADDITIONAL NOTES The nursing notes have been reviewed. PHYSICAL EXAM Vital Signs: 11/16/2016 20:16 BP: 185/100. HR: 98. RR: 18. O2 saturation: 98%. Temp: 98.5 F. Pain level now: 8/10. Have been reviewed. Appearance: Alert. Eyes: Pupils equal, round and reactive to light. ENT: Pharynx normal. Neck: Normal inspection. Neck supple. CVS: Normal heart rate and rhythm. Heart sounds normal. Respiratory: No respiratory distress. Breath sounds normal. Abdomen: Soft. Mild tenderness diffusely. Bowel sounds normal. No organomegaly. No mass. Back: Normal inspection. No CVA tenderness. Skin: Skin warm and dry. Normal skin color. Normal skin turgor. Extremities: Extremities exhibit normal ROM. No calf tenderness. No lower extremity edema. LABS, X-RAYS, AND EKG Abdominal CT: IMPRESSION: 1. No acute process. 2. Partial sigmoid resection with anastomosis. 3. Descending diverticulosis without acute diverticulitis. The study was interpreted contemporaneously by me and discussed with the radiologist. Laboratory Tests: UA-Culture if indicated: (COURT: 11/16/2016 22:10) ( MsgRcvd 11/16/2016 22:26) Final results Test Result Flag Units (Reference) URINE COLOR YELLOW URINE APPEARANCE CLEAR URINE GLUCOSE NEGATIVE (NEGATIVE) URINE BILIRUBIN NEGATIVE (NEGATIVE) URINE KETONE NEGATIVE (NEGATIVE) URINE SPECIFIC GRAVITY 1.010 (1.010-1.030) URINE PH 7.0 (5.0-8.0) URINE PROTEIN NEGATIVE (NEGATIVE) URINE UROBILINOGEN 0.2 EU/dL (0.2-1.0) URINE NITRITE NEGATIVE (NEGATIVE) URINE BLOOD TRACE-LYSED (NEGATIVE) URINE LEUK ESTERASE NEGATIVE (NEGATIVE) URINE RBC 1-3 rbc/hpf (0-1) URINE WBC RARE wbc/hpf (0-1) URINE EPITHELIAL CELLS RARE EPI/hpf (0-5) URINE BACTERIA NONE SEEN (NONE SEEN) URINE COMMENT CULT NOT INDICATED URINE CULTURES ARE SET-UP BASED ON THE FOLLOWING CRITERIA:POSITIVE NITRITEPOSITIVE LEUKOCYTE ESTERASEGREATER THAN 10 WHITE BLOOD CELLSMODERATE (2+) OR GREATER BACTERIA CBC w Diff: (COURT: 11/16/2016 21:00) ( [facility] Final results Test Result Flag Units (Reference) WHITE BLOOD COUNT 9.2 K/uL (4.5-11.5) RED BLOOD COUNT 4.80 M/uL (4.50-5.90) HEMOGLOBIN 15.1 gm/dL (13.5-17.5) HEMATOCRIT 44.9 % (41.0-53.0) MEAN CELL VOLUME 94 fL (80-100) MEAN CORPUSCULAR HGB 31 pg (26-34) MEAN CORPUSCULAR HGB CONC 34 g/dL (31-37) RED CELL DISTRIBUTION WIDTH 13.6 % (11.6-14.8) PLATELET COUNT 204 K/uL (150-400) NEUTROPHIL % 70.1 % (50-75) LYMPH % 18.2 L % (25-40) MONO % 9.6 % (3-14) EOSINOPHIL % 1.2 % (0-4) BASOPHIL % 0.9 % (0-2) CHEM 13 PANEL: (COURT: 11/16/2016 21:00) ( MsgRcvd 11/16/2016 21:31) Final results Test Result Flag Units (Reference) GLUCOSE 106 mg/dL (70-110) BUN 16 mg/dL (7-18) CREATININE 0.9 mg/dL (0.6-1.3) Estimated GFR >60 mL/min Estimated GFR- >60 mL/min Note: Persistent reduction over 3 months in eGFR<60 mL/min/1.73 m2 defines CKD. Patients with eGFR values>=60 mL/min/1.73 m2 may also have CKD if evidence ofpersistent proteinuria. Additional information may be foundat www.kidney.org. SODIUM 139 mmol/L (136-145) POTASSIUM 3.9 mmol/L (3.5-5.1) CHLORIDE 102 mmol/L (98-107) CARBON DIOXIDE 25 mmol/L (21-32) CALCIUM 9.2 mg/dL (8.5-10.1) TOTAL PROTEIN 8.1 g/dL (6.4-8.2) ALBUMIN 3.9 g/dL (3.3-5.0) BILIRUBIN, TOTAL 0.8 mg/dL (0.0-1.0) ALKALINE PHOSPHATASE 107 U/L (46-116) AST (SGOT) 19 U/L (15-37) ALT (SGPT) 19 U/L (12-78) MAGNESIUM 2.2 mg/dL (1.8-2.4) CPK 90 U/L (24-260) TROPONIN I <0.05 ng/mL (0.00-1.5) TROPONIN REFERENCE RANGE:<0.1 NEGATIVE0.1-1.5 INDETERMINANT>1.5 POSITIVE . PROGRESS AND PROCEDURES Course of Care: Patient is stable. Patient/family counseled. Old medical records reviewed. Disposition: Discharged. Condition: stable. CLINICAL IMPRESSION Left lower quadrant abdominal pain. Constipation INSTRUCTIONS No driving or operating machinery while taking medication. Sedative medication was given during your visit. Drink plenty of fluids. Warnings: Further evaluation is necessary. GENERAL WARNINGS: Return or contact your physician immediately if your condition worsens or changes unexpectedly, if not improving as expected, or if other problems arise. Your Current Medications: CONTINUE TAKING THE FOLLOWING MEDICATIONS: CeleBREX Oral : Capsule 50 mg, 1 capsule daily. Synthroid Oral : 200 mcg daily. Viagra Oral : Tablet 100 mg, 1 tablet PRN, Last: last night at 2200. Zocor Oral : 40 mg daily. Zolpidem Tartrate Oral : 10 mg at bedtime. Prescription Medications: Ultram 50 mg: take 1-2 orally every 6 hours as needed for pain. No refills. Substitution is permissible. (8 pills) OTC Medications: Colace capsules (available over the counter): take according to label instructions. Magnesium Citrate (10-oz bottle) (available over the counter): take 1/2 bottle to achieve bowel movement. Repeat after 4 hours if needed. Follow-up: Follow up with your doctor NURYS RIGGS tomorrow. Call for an appointment. Understanding of the discharge instructions verbalized by patient. (Electronically signed by Dominik Brooks MD 11/24/2016 2:14)
--- NOTE | 2016-11-16 23:35 | ED ORDER SUMMARY ---
..... Patient: BUCK MERRILL OrderSheet [facility] VisitID: [id number] [address] [place] [address] 76y, M Registration Date/Time: 11/16/2016 ORDER SHEET Weight: 99.7 kg (stated) Allergies: NKDA GENERAL ORDERS: Cardiac Panel Stat (20:11/16/2016 Pilar JONES) (Ack 20:34 Nury) (20:58 Retawis R.N.) UA-Culture if indicated Urgent (20:11/16/2016 Pilar JONES) (Ack 20:34 Nury) (22:14 Rosalinda R.N.) CT Abd/Pel w Cont (No) (pending) Urgent (:11/16/2016 Pilar JONES) (Ack 20:35 Nury) (22:11 MCampbell) MEDICATION ORDERS: IV FLUIDS: IV NS : initial bolus none -, then 150 mL/hr for 4h (NOW); Routine (20:33 11/16/2016 Pilar JONES) (20:58 TLewis R.N.) Demerol IV 12.5 mg (NOW) (20:34 11/16/2016 Pilar JONES) (21:00 TLewis R.N.) Zofran IV 4 mg (NOW) (20:11/16/2016 Pilar JONES) (20:59 TLewis R.N.) ORDER SHEET NOTES: [Electronically signed by Stacy Fonseca R.N. (23:44 11/16/2016)] [Electronically signed by Dominik Brooks MD (02:14 11/24/2016)] [Electronically locked/signed by Stacy Fonseca R.N. (23:44 11/16/2016)]
--- NOTE | 2016-11-16 23:35 | ED NURSING NOTES ---
Clinical Report - Nurses [facility] [address] [place] [address] 11/16/2016 20:05 Patient: BUCK MERRILL TRIAGE Triage time 20:010pr 2016. Alert. PHANI COMA SCORE: [place] Coma Scale: 15- eyes open spontaneously (4); best verbal response- oriented x 4 (5); best motor response- obeys commands (6). --20:21 Basilio Yap R.N. 20:16 11/16/16. BP: 185/100. HR: 98. RR: 18. O2 saturation: 98%. Temp: 98.5 F. Pain level now: 03/10. Additional comments: LLQ abd pain. --20:21 Basilio Yap R.N. Acuity: LEVEL 3. Chief Complaint: ABDOMINAL PAIN and NAUSEA. --20:27 Basilio Yap R.N. Weight: 99.7 kg stated. Height/Length: 65 inches Per Patient. BMI: 36.6. --20:19 Basilio Yap R.N. Medications CeleBREX Oral (Capsule 50 mg) 1 capsule, daily. Synthroid Oral 200 mcg, daily. Viagra Oral (Tablet 100 mg) 1 tablet, PRN, last dose last night at 2200. Zocor Oral 40 mg, daily. Zolpidem Tartrate Oral 10 mg, at bedtime. --20:24 Basilio Yap R.N. Allergies NKDA. --20:24 Basilio Yap R.N. History Arrived by private vehicle. Historian: patient. Accompanied by spouse. Primary physician (Jaxon Branch). ( LLQ abd pain). --20:21 Basilio Yap R.N. Onset. (about 4 days ago). He has had abdominal pain. No diarrhea. Last oral intake by patient was (about 6 hours ago). 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 PAST MEDICAL HX: Immunizations: up-to-date. SOCIAL HX: Never smoker. No alcohol use or drug use. No recent travel. No infectious disease exposure. ABUSE ASSESSMENT: No report of abuse. FALL RISK ASSESSMENT: Fall risk assessment completed. No fall risk identified. NUTRITIONAL RISK ASSESSMENT: The nutritional risk assessment revealed no deficiencies. FUNCTIONAL ASSESSMENT: Functional assessment: no impairments noted. LEARNING NEEDS ASSESSMENT: The learning needs assessment revealed no barriers. SKIN INTEGRITY ASSESSMENT: Skin integrity risk assessment completed. No skin integrity risk identified. --20:27 Basilio Yap R.N. PROBLEMS: Cellulitis. Diverticulitis. PTSD. Contusion. Abdominal Pain. Tetanus Status. Hypertension. Hypothyroidism. Hypercholesterolemia. --20:25 Basilio Yap R.N. ADDITIONAL SURGERIES: Colectomy. Knee Surgery. Tonsillectomy. --20:25 Basilio Yap R.N. Interventions ID band on patient. To room. --20:27 Basilio Yap R.N. PHYSICAL ASSESSMENT Ambulatory to room. GENERAL / NEURO / PSYCH: Alert. Oriented X 4. Appears in pain. HEENT: Mucous membranes are pink. RESPIRATORY: Respirations not labored. CVS: Cardiac rhythm: (RRR). Capillary refill less than 2 seconds. GI / : Abdominal tenderness in the left lower quadrant. SKIN: Skin is warm and dry. --20:29 Basilio Yap R.N. NURSING PROGRESS NOTES Patient gowned. Reassurance given. Patient identifiers checked. Call light placed in reach. Side rails up x 1. Bed placed in lowest position. Brakes of bed on. Patient ready for evaluation- chart flagged and ED physician notified. --20:29 Basilio Yap R.N. 20:58 11/16/2016 Site #1 started via IV in the left forearm with an 20g angiocath, with aseptic technique and good blood return; one attempt. Blood drawn: rainbow set. Labeled in the presence of the patient and sent to the lab. Saline lock flushed with 10 mL saline. --20:58 Zach Brannon R.N. 20:58 11/16/2016 Started bag #1 1000 mL IV Fluids IV NS (Saline); at 1000 mL/hr over 1 hour(s) via site #1 via IV pump. Allergies verified and confirmed 5 rights. IV patency established. IV site checked: no pain, redness, or swelling. IV flushed thoroughly pre- and post-medication administration. --20:58 Zach Brannon R.N. 20:59 11/16/2016 Zofran (Ondansetron HCl) IVP 4 mg given over 1 minute(s) via site #1. Allergies verified and confirmed 5 rights. IV patency established. IV site checked: no pain, redness, or swelling. IV flushed thoroughly pre- and post-medication administration. IVP given by RN. --20:59 Zach Brannon R.N. 21:00 11/16/2016 Demerol (Meperidine HCl) IVP 12.5 mg given over 1 minute(s) via site #1. Allergies verified and confirmed 5 rights. IV patency established. IV site checked: no pain, redness, or swelling. IV flushed thoroughly pre- and post-medication administration. IVP given by RN. --21:00 Zach Brannon R.N. 21:00 11/16/2016 IV Fluids IV NS via IV site #1 Rate Changed: bag #1 decreased to 150 mL/hr via IV pump. IV patency established. IV site checked: no pain, redness, or swelling. IV flushed thoroughly. Confirmed 5 Rights. --21:42 Stacy Fonseca R.N. 21:07 11/16/16. Care transferred and report received (from LAYNE Serrano). --21:07 Stacy Fonseca R.N. 21:43 11/16/16. Reassessment after medication administered. He has had no adverse reaction. Overall patient status is improved- he states feels better. GI / : The patient reports abdominal pain is still present but improving and currently mild in severity and constant. --21:43 Stacy Fonseca R.N. 21:43 11/16/16. BP: 136/85. HR: 78. RR: 18. O2 saturation: 93%. Pain level now 4/10. --21:43 Stacy Fonseca R.N. 21:45 11/16/16. ( Patient still unable to void). --21:45 Stacy Fonseca R.N. 22:15 11/16/16. Patient ID band checked for patient name and birthdate: patient confirmed. Instructions provided to collect clean catch urine and patient verbalized understanding. Clean catch urine collected with return of yellow-colored clear urine; sample sent to lab for urinalysis. Specimen labeled in the presence of the patient. --22:15 Stacy Fonseca R.N. 22:25 11/16/16. Patient waiting for CT results and disposition. --22:25 Stacy Fonseca R.N. Intake & Output 22:15 11/16/16. Urine: 200 mL. --22:15 Stacy Fonseca R.N. DISPOSITION / DISCHARGE 23:43 11/16/2016 Site #1 removed upon discharge. Catheter intact. Pressure dressing applied. --23:43 Stacy Fonseca R.N. 23:43 11/16/2016 IV Fluids IV NS Discontinued: bag #1 discontinued. Total amount infused: 400 mL. IV patency established. IV site checked: no pain, redness, or swelling. IV flushed thoroughly. --23:43 Stacy Fonseca R.N. 23:44 11/16/16. Condition at departure: improved and stable. The goals identified in the patient's plan of care were met. No learning barriers present. Reviewed medication(s) side effects, precautions, dosing and course information. Prescription(s) given to the patient. Reviewed referral to a primary care physician for followup. Summary of care provided to patient via paper. Patient verbalized understanding. Written instructions provided in Mauritanian. The patient was discharged home and accompanied by spouse. He left the Emergency Department ambulatory and via private vehicle. Spouse driving. FALL RISK ASSESSMENT: Fall risk assessment completed. No fall risk identified. --23:44 Stacy Fonseca R.N. 23:42 11/16/16. BP: 146/84. HR: 68. RR: 18. O2 saturation: 96%. Temp: 97.9 F. Pain level now: 0/10. 21:42 11/16/16. BP: 136/85. HR: 78. RR: 18. O2 saturation: 93%. Pain level now 4/10. 20:16 11/16/16. BP: 185/100. HR: 98. RR: 18. O2 saturation: 98%. Temp: 98.5 F. Pain level now: 03/10. Additional comments: LLQ abd pain. --23:44 Stacy Fonseca R.N. Departure time: 23:44 Nov 16 2016. --23:44 Stacy Fonseca R.N. Locked/Released at 11/16/2016 23:44 by Stacy Fonseca R.N.
--- NOTE | 2016-11-16 23:35 | ED ORDER SUMMARY ---
..... Patient: BUCK MERRILL OrderSheet [facility] VisitID: [id number] [address] [place] [address] 76y, M Registration Date/Time: 11/16/2016 ORDER SHEET Weight: 99.7 kg (stated) Allergies: NKDA GENERAL ORDERS: Cardiac Panel Stat (20:11/16/2016 Pilar JONES) (Ack 20:34 Nury) (20:58 Retawis R.N.) UA-Culture if indicated Urgent (20:11/16/2016 Pilar JONES) (Ack 20:34 Nury) (22:14 Rosalinda R.N.) CT Abd/Pel w Cont (No) (pending) Urgent (:11/16/2016 Pilar JONES) (Ack 20:35 Nury) (22:11 MCampbell) MEDICATION ORDERS: IV FLUIDS: IV NS : initial bolus none -, then 150 mL/hr for 4h (NOW); Routine (20:33 11/16/2016 Pilar JONES) (20:58 TLewis R.N.) Demerol IV 12.5 mg (NOW) (20:34 11/16/2016 Pilar JONES) (21:00 TLewis R.N.) Zofran IV 4 mg (NOW) (20:11/16/2016 Pilar JONES) (20:59 TLewis R.N.) ORDER SHEET NOTES: [Electronically signed by Stacy Fonseca R.N. (23:44 11/16/2016)] [Electronically signed by Dominik Brooks MD (02:14 11/24/2016)] [Electronically locked/signed by Stacy Fonseca R.N. (23:44 11/16/2016)]
--- NOTE | 2016-11-24 02:14 | ED MAR SUMMARY ---
..... Medication Administration Record [facility] [address] [place] [address] Patient: BUCK MERRILL Visit ID: [id number] 76y, M Weight: 99.7 kg Height/Length: 65 in BMI: 36.6 ALLERGIES: NKDA Start 20:58 11/16/2016 Zach Brannon R.N., Stop 23:43 11/16/2016 Stacy Fonseca R.N. Medication Administered: IV NS (SALINE), Dose: IV Fluids over 1 hour(s), Rate: 1000 mL/hr, Dispensed: 1000 mL bag, Site: #1 left forearm. Medication Ordered: IV NS : initial bolus none -, then 150 mL/hr for 4h (NOW); Routine. Given 20:59 11/16/2016 Zach Brannon R.N. Medication Administered: ZOFRAN [IVP] (ONDANSETRON HCL), Dose: 4 mg IVP over 1 minute(s), Site: #1 left forearm. Medication Ordered: Zofran IV 4 mg (NOW). Given 21:00 11/16/2016 Zach Brannon R.N. Medication Administered: DEMEROL [IVP] (MEPERIDINE HCL), Dose: 12.5 mg IVP over 1 minute(s), Site: #1 left forearm. Medication Ordered: Demerol IV 12.5 mg (NOW).
--- NOTE | 2016-11-24 02:14 | ED DISCHARGE INSTRUCTIONS ---
Patient: BUCK MERRILL General Instructions [facility] VisitID: [id number] [place] [address] 76y, M Registration Date/Time: 11/16/2016 Left lower quadrant abdominal pain. Constipation INSTRUCTIONS No driving or operating machinery while taking medication. Sedative medication was given during your visit. Drink plenty of fluids. Warnings: Further evaluation is necessary. GENERAL WARNINGS: Return or contact your physician immediately if your condition worsens or changes unexpectedly, if not improving as expected, or if other problems arise. Your Current Medications: CONTINUE TAKING THE FOLLOWING MEDICATIONS: CeleBREX Oral : Capsule 50 mg, 1 capsule daily. Synthroid Oral : 200 mcg daily. Viagra Oral : Tablet 100 mg, 1 tablet PRN, Last: last night at 2200. Zocor Oral : 40 mg daily. Zolpidem Tartrate Oral : 10 mg at bedtime. Prescription Medications: Ultram 50 mg: take 1-2 orally every 6 hours as needed for pain. No refills. Substitution is permissible. (8 pills) OTC Medications: Colace capsules (available over the counter): take according to label instructions. Magnesium Citrate (10-oz bottle) (available over the counter): take 1/2 bottle to achieve bowel movement. Repeat after 4 hours if needed. Follow-up: Follow up with your doctor NURYS RIGGS tomorrow. Call for an appointment. Understanding of the discharge instructions verbalized by patient. ADDITIONAL INFORMATION Abdominal Pain,Uncertain Cause [Male] Based on your visit today, the exact cause of your abdominalpain is not clear. Your exam and tests do not indicate a dangerous cause at this time. However, the signs of a serious problem may take more time to appear. Although your evaluation was reassuring today, sometimes early in the course of many conditions, exam and lab tests can appear normal. Therefore, it is important for you to watch for any new symptoms or worsening of your condition. Causes It may not be obvious what caused your symptoms. Pay attention to things that do seem to make your symptoms worse or better and discuss this with your doctor when you follow up. Diagnosis The evaluation of abdominal pain in the emergency department may onlyrequire an exam by the doctor or it may include blood, urine or imaging studies, depending on many factors. Sometimes exams and tests can identify a cause but in many cases, a clear cause is not found. Further testing at follow up visits may help to suggest a clear diagnosis. Home Care Rest as much as possible until your next exam. Try to avoid any medications (unless otherwise directed by your doctor), foods, activities, or other factors that you may have contributed to your symptoms. Try to eat foods that you know that you have tolerated well in the past. Certain diets may be recommended for some conditions that cause abdominal pain. However, since the cause of your symptoms may not be clear, discuss your diet more with your primary care provider or specialist for further recommendations. Eating several small meals per day as opposed to 2 or 3 larger meals may help. Monitor closely for anything that may make your symptoms worse or better. Pay close attention to symptoms below that may indicate worsening of your condition. Follow Up and Precautions See your doctoras instructed or sooneror if your symptoms are not improving.In some cases, you may need more testing. When to Seek Medical Attention Contact your doctor or see medical attention ifany of the following occur: Pain is becoming worse You are unable to take your medications due to excessive vomiting Swelling of the abdomen Fever of 100.4F (38C) or higher, or as directed by your health care provider Blood in vomit or bowel movements (dark red or black color) Jaundice (yellow color of eyes and skin) New onset of weakness, dizziness or fainting New onset of chest, arm, back, neck or jaw pain Constipation (Adult) Constipation is bowel movements that are less frequent than usual. Stools often become very hard and difficult to pass. This may lead to abdominal pain and bloating. It may also cause painful bowel movements. Constipation may be due to a diet thats low in fiber. Some medications, especially pain medications, can also cause it. Constipation may be treated with enemas, suppositories, laxatives or stool softeners. Your doctor will advise you which will work best for you. Follow the advice below to help avoid this problem in the future. Home Care Medication: Take any medicines as directed. Some laxatives are safe only for occasional use. Others can be taken on a regular basis. Talk to your doctor or pharmacist if you have questions. General Care: Prescription pain medications can cause constipation. If you are prescribed pain medications, ask the doctor whether you should also take a stool softener. A diet high in fiber with plenty of fluids helps to maintain regular, soft bowel movements. The following foods are good sources of dietary fiber: Cereals and breads: Whole grain cereal with bran, oatmeal, rolled oats, whole grain breads Fruits: All fruits (fresh and dried), raisins, prunes, apricots, berries, figs Vegetables: Any fresh vegetables, especially peas, broccoli, brussels sprouts, winter squash, green beans, cauliflower, menjivar beans, carrots Other: Popcorn, brown rice Drink plenty of water when you increase the amount of fiber you eat. Follow Up with your doctor or return to this facility if symptoms do not improve in the next few days. You may require further tests or a referral to a specialist. Get Prompt Medical Attention if any of the following occur: Fever over 100.4F (38C) Failure to resume normal bowel movements Increasing abdominal or back pain Nausea or vomiting Abdominal swelling Blood in the stool Weakness, dizziness or fainting Unexpected vaginal bleeding High Fiber Diet Fiber is present in all fruits, vegetables, cereals and grains. Fiber passes through the body undigested. A high fiber diet helps food move through the intestinal tract. The added bulk is helpful in preventing constipation. In people with diverticulosis it serves to clean out the pouches along the colon wall while preventing new ones from forming. A high fiber diet also reduces the risk of colon cancer, decreases blood cholesterol and prevents high blood sugar in people with diabetes. The foods listed below are high in fiber and should be included in your diet. If you are not used to high fiber foods, start with 1 or 2 foods from this list. Every 3-4 days add a new one to your diet until you are eating 4 high fiber foods per day. This should give you 20-35 Gm of fiber/day. It is also important to drink a lot of water when you are on this diet (6-8 glasses a day). Water causes the fiber to swell and increases the benefit. Foods High In Dietary Fiber: BREADS: Made with 100% whole wheat flour; jung, wheat or rye crackers; tortillas, bran muffins CEREALS: Whole grain cereal with bran (Chex, Raisin Bran, [place] Bran), oatmeal, rolled oats, granola, wheat flakes, brown rice NUTS: Any nuts FRUITS: All fresh fruits along with edible skins, (bananas, citrus fruit, mangoes, pears, prunes, raisins, apples, pineapple, apricot, melon, jams and marmalades), fruit juices (especially prune juice) VEGETABLES: All types, preferably raw or lightly cooked: especially, celery, eggplant, potatoes,spinach, broccoli, brussel sprouts, winter squash, carrots, cauliflower, soybeans, lentils, fresh and dried beans of all kinds OTHER: Popcorn, any spices Docusate Sodium Oral tablet What is this medicine? DOCUSATE (doc CUE sayt) is stool softener. It helps prevent constipation and straining or discomfort associated with hard or dry stools. How should I use this medicine? Take this medicine by mouth with a glass of water. Follow the directions on the label. Take your doses at regular intervals. Do not take your medicine more often than directed. Talk to your tip cutter regarding the use of this medicine in children. While this medicine may be prescribed for children as young as 2 years for selected conditions, precautions do apply. What side effects may I notice from receiving this medicine? Side effects that you should report to your doctor or health ambulatory care coordinator as soon as possible: allergic reactions like skin rash, itching or hives, swelling of the face, lips, or tongue Side effects that usually do not require medical attention (report to your doctor or health ambulatory care coordinator if they continue or are bothersome): diarrhea stomach cramps throat irritation What may interact with this medicine? mineral oil What if I miss a dose? If you miss a dose, take it as soon as you can. If it is almost time for your next dose, take only that dose. Do not take double or extra doses. Where should I keep my medicine? Keep out of the reach of children. Store at room temperature between 15 and 30 degrees C (59 and 86 degrees F). Throw away any unused medicine after the expiration date. What should I tell my health care provider before I take this medicine? They need to know if you have any of these conditions: nausea or vomiting severe constipation stomach pain sudden change in bowel habit lasting more than 2 weeks an unusual or allergic reaction to docusate, other medicines, foods, dyes, or preservatives or trying to get breast-feeding What should I watch for while using this medicine? Do not use for more than one week without advice from your doctor or health ambulatory care coordinator. If your constipation returns, check with your doctor or health ambulatory care coordinator. Drink plenty of water while taking this medicine. Drinking water helps decrease constipation. Stop using this medicine and contact your doctor or health ambulatory care coordinator if you experience any rectal bleeding or do not have a bowel movement after use. These could be signs of a more serious condition. You have been given the following additional information: Abdominal Pain, Unknown Cause, (Male) Constipation (Adult) Diet, High Fiber Docusate Sodium Oral tablet No driving or operating machinery while taking medication. Sedative medication was given during your visit. (Electronically signed by Dominik Brooks MD 11/24/2016 2:14)
--- NOTE | 2016-11-24 02:14 | ED MED RECONCILIATION SUMMARY ---
Patient: BUCK MERRILL Medication Reconciliation Report [facility] VisitID: [id number] [address] [place] [address] 76y, M Registration Date/Time: 11/16/2016 Weight: 99.7 kg Height/Length: 65 in. BMI: 36.6 ALLERGIES: NKDA The patient's Home Medications are listed below: CONTINUE TAKING THE FOLLOWING MEDICATIONS: CeleBREX Oral (50 mg) 1 capsule, daily Synthroid Oral 200 mcg, daily Viagra Oral (100 mg) 1 tablet, PRN, last dose: last night at 2200 Zocor Oral 40 mg, daily Zolpidem Tartrate Oral 10 mg, at bedtime The source(s) of the original Home Medication information: Not obtained. The following Medications were given to the patient in the Emergency Department: IV NS IV Fluids bolus 0, then 1000 mL/hr, administered: 11/16/2016 8:58:00 PM Zofran [IVP] IVP 4 mg, administered: 11/16/2016 8:59:00 PM Demerol [IVP] IVP 12.5 mg, administered: 11/16/2016 9:00:00 PM The following Medications were prescribed to the patient: Colace capsules (available over the counter): take according to label instructions. -- Dominik Brooks MD Ultram 50 mg: take 1-2 orally every 6 hours as needed for pain. No refills. Substitution is permissible.(8 pills) -- Dominik Brooks MD Magnesium Citrate (10-oz bottle) (available over the counter): take 1/2 bottle to achieve bowel movement. Repeat after 4 hours if needed. -- Dominik Brooks MD
--- NOTE | 2016-11-24 02:14 | ED MED RECONCILIATION SUMMARY ---
Patient: BUCK MERRILL Medication Reconciliation Report [facility] VisitID: [id number] [address] [place] [address] 76y, M Registration Date/Time: 11/16/2016 Weight: 99.7 kg Height/Length: 65 in. BMI: 36.6 ALLERGIES: NKDA The patient's Home Medications are listed below: CONTINUE TAKING THE FOLLOWING MEDICATIONS: CeleBREX Oral (50 mg) 1 capsule, daily Synthroid Oral 200 mcg, daily Viagra Oral (100 mg) 1 tablet, PRN, last dose: last night at 2200 Zocor Oral 40 mg, daily Zolpidem Tartrate Oral 10 mg, at bedtime The source(s) of the original Home Medication information: Not obtained. The following Medications were given to the patient in the Emergency Department: IV NS IV Fluids bolus 0, then 1000 mL/hr, administered: 11/16/2016 8:58:00 PM Zofran [IVP] IVP 4 mg, administered: 11/16/2016 8:59:00 PM Demerol [IVP] IVP 12.5 mg, administered: 11/16/2016 9:00:00 PM The following Medications were prescribed to the patient: Colace capsules (available over the counter): take according to label instructions. -- Dominik Brooks MD Ultram 50 mg: take 1-2 orally every 6 hours as needed for pain. No refills. Substitution is permissible.(8 pills) -- Dominik Brooks MD Magnesium Citrate (10-oz bottle) (available over the counter): take 1/2 bottle to achieve bowel movement. Repeat after 4 hours if needed. -- Dominik Brooks MD
--- NOTE | 2016-11-24 02:14 | ED MAR SUMMARY ---
..... Medication Administration Record [facility] [address] [place] [address] Patient: BUCK MERRILL Visit ID: [id number] 76y, M Weight: 99.7 kg Height/Length: 65 in BMI: 36.6 ALLERGIES: NKDA Start 20:58 11/16/2016 Zach Brannon R.N., Stop 23:43 11/16/2016 Stacy Fonseca R.N. Medication Administered: IV NS (SALINE), Dose: IV Fluids over 1 hour(s), Rate: 1000 mL/hr, Dispensed: 1000 mL bag, Site: #1 left forearm. Medication Ordered: IV NS : initial bolus none -, then 150 mL/hr for 4h (NOW); Routine. Given 20:59 11/16/2016 Zach Brannon R.N. Medication Administered: ZOFRAN [IVP] (ONDANSETRON HCL), Dose: 4 mg IVP over 1 minute(s), Site: #1 left forearm. Medication Ordered: Zofran IV 4 mg (NOW). Given 21:00 11/16/2016 Zach Brannon R.N. Medication Administered: DEMEROL [IVP] (MEPERIDINE HCL), Dose: 12.5 mg IVP over 1 minute(s), Site: #1 left forearm. Medication Ordered: Demerol IV 12.5 mg (NOW).
== END 2016-11-16 23:44 | disposition home or self-care (01) ==
LOC: ED SRH 20:03
DX: R10.32 Left lower quadrant pain (principal); K59.00 Constipation, unspecified; I10 Essential (primary) hypertension; Z79.899 Other long term (current) drug therapy
CPT/HCPCS: 90004; 90100; 90616; 92610; 92720; 95059